=== PATIENT | female | born 1990 | race Caucasian/White ===

== ENCOUNTER 2016-12-30 04:56 | Emergency (ER) | payer BC ==
[2016-12-30 05:19] VITALS: RESP 16; TEMP 97.4
--- NOTE | 2016-12-30 05:55 | C.PDOC ---
History Of Present Illness 26 y/o female presents to ED with complaint of foreign body sensation to the left ear canal. Patient notes that her earring fell into her ear while sleeping , just prior to arrival. Otherwise, denies drainage, fever, chills, or any other complaints. Time Seen by Provider: 12/30/16 05:15 Chief Complaint (Nursing): ENT Problem History Per: Patient History/Exam Limitations: None Onset/Duration Of Symptoms: Hrs Current Symptoms Are (Timing): Still Present Quality (Ear): Foreign Body Past Medical History Reviewed: Historical Data, Nursing Documentation, Vital Signs Vital Signs: Last Vital Signs Temp 97.4 F L 12/30/16 05:06 Pulse 78 12/30/16 06:08 Resp 16 12/30/16 06:08 BP 128/84 12/30/16 06:08 Pulse Ox 100 12/30/16 06:16 - Medical History PMH: Asthma Family History: States: Unknown Family Hx - Social History Hx Alcohol Use: No Hx Substance Use: No - Immunization History Hx Influenza Vaccination: Yes Review Of Systems Except As Marked, All Systems Reviewed And Found Negative. Constitutional: Negative for: Fever, Chills ENT: Positive for: Other (Foreign body - Left ear). Negative for: Ear Discharge Respiratory: Negative for: Cough Physical Exam - Physical Exam Appears: Non-toxic, No Acute Distress Skin: Normal Color, Warm, Dry Head: Atraumatic, Normacephalic Eye(s): bilateral: Normal Inspection, PERRL, EOMI Ear(s): Left: Other (visualized foreign body to entrance of left ear canal, no swelling or drainage), Right: Normal Nose: Normal Oral Mucosa: Moist Throat: Normal, No Erythema, No Exudate Neurological/Psych: Oriented x3, Normal Speech, Normal Cognition ED Course And Treatment O2 Sat by Pulse Oximetry: 100 (RA) Pulse Ox Interpretation: Normal Progress Note: Attempted to remove with alligator forceps and with suction, with no success. Patient advised to call Dr. Jha in a few hours to schedule appointment for removal. Patient agrees with plan of discharge and follow up with Dr. Jha. Disposition Counseled Patient/Family Regarding: Diagnosis, Need For Followup - Disposition Referrals: Leno Jha MD [Staff Provider] - Disposition: HOME/ ROUTINE Disposition Time: 05:54 Condition: STABLE Additional Instructions: PLEASE CALL DR JHA OFFICE TODAY FOR APPOINTMENT FOR FOREIGN BODY REMOVAL RETURN TO ER IF WORSE Instructions: Ear Foreign Body (ED) - Clinical Impression Clinical Impression: Ear foreign body - PA / [employer] / Resident Statement MD/DO has reviewed & agrees with the documentation as recorded. - Scribe Statement The provider has reviewed the documentation as recorded by the Scribe Osmar Arora Provider Scribe Attestation: All medical record entries made by the Boniibe were at my direction and personally dictated by me. I have reviewed the chart and agree that the record accurately reflects my personal performance of the history, physical exam, medical decision making, and the department course for this patient. I have also personally directed, reviewed, and agree with the discharge instructions and disposition.
[2016-12-30 06:09] VITALS: BP 128/84; PULSE 78
[2016-12-30 06:16] VITALS: O2SAT 100
== END 2016-12-30 06:24 | disposition home or self-care (01) ==
LOC: C.ER 04:56
DX: T16.2XXA Foreign body in left ear, initial encounter (principal); X58.XXXA Exposure to other specified factors, initial encounter